=== PATIENT | male | born 1950 | race African-American/Black ===

== ENCOUNTER 2024-04-16 14:03 | Outpatient (REF) | payer MEDICARE, SELFPAY ==
--- NOTE | ~2024-04-16 | US_ITS ---
EXAMINATION: US TRIPLEX LOWER EXTREMITY, BILATERAL CLINICAL INFORMATION: Edema COMPARISON: None available. TECHNIQUE: Color-flow triplex imaging with spectral analysis and compression Doppler were performed on the bilateral lower extremities. FINDINGS: Respiratory variation, normal compression and augmented flow are noted throughout the bilateral lower extremities. The visualized common femoral vein, superficial femoral vein, profunda femoral vein, popliteal vein and midcalf peroneal and posterior tibial venous segments show no evidence of deep venous thrombosis bilaterally. There is no Carmichael's cyst. US/US venous duplex LE BI IMPRESSION: No acute deep venous thrombosis in the interrogated veins, both lower extremities. Electronically signed by: Hernán Gong MD 04/17/2024 07:11 AM ZEENAT
== END 2024-04-16 14:04 | disposition home or self-care (01) ==
LOC: HO.US 14:03
PROVIDERS: PCP Internal Medicine; Visit Provider Internal Medicine
DX: R60.0 Localized edema (principal)
CPT/HCPCS: 93970

== ENCOUNTER → 2024-04-16 14:12 | Outpatient (BNV) | payer MEDICARE, SELFPAY | PROVIDERS: PCP Internal Medicine; Visit Provider Radiology Diagnostic Radiology | DX: R60.9 Edema, unspecified (principal) | CPT/HCPCS: 93970 ==

== ENCOUNTER 2024-06-08 13:11 | Outpatient (AMB) | payer MEDICARE, SELFPAY ==
--- NOTE | 2024-06-08 13:17 | A.OFFVIS_ITS ---
Intake Visit Reasons: hydrocele/ history of stones Intake Note: New Patient presents for initial visit for left hydrocele Urology Medications: none Blood Thinner: none Legal Secretary Required: No Accompanied by: Self / Same As Patient Allergies No Known Allergies Allergy (Verified 06/08/24 14:03) Medication List - Last Reconciled 06/08/24 by MERYL Barraza amlodipine mg PO DAILY empagliflozin (Jardiance) mg PO DAILY insulin glargine (Lantus Solostar U-100 Insulin) units subcut lisinopril mg PO DAILY metformin mg PO DAILY metoprolol succinate ER mg PO pantoprazole mg PO rosuvastatin mg PO DAILY HPI Comments Details: Aaron is a 74-year-old male patient of Dr. Calle. He has a past medical history of diabetes, GERD, hypertension, and hyperlipidemia. He presents to the office today as a new patient for nephrolithiasis as well as large left hydrocele. In discussion with the patient today he reports previously following up with [facility] however is looking to reestablish new urology care. He discusses a previous history of nephrolithiasis requiring surgical intervention. He also discusses previously having a scrotal ultrasound and being diagnosed with a hydrocele. In assessment of the patient today the penis is uncircumcised and large left hydrocele was palpated othewise no open areas, drainage, or lesions noted. When asked he denies any bothersome urinary issues. He denies urinary urgency, urinary frequency, incontinence, nocturia, hematuria, dysuria, foul smelling urine, changes to urinary stream, flank pain, fever, and or chills. He is happy with his current voiding parameters. Previous scrotal ultrasound results were obtained and reviewed. 09/23 no evidence of testicular torsion. Small right and large left hydrocele. Previous CT 09/23 noted mild left pelviectasis. 6 mm stone seen in the proximal left ureter. The bladder is normal. However, patient reports having had surgical procedure on left obstructing stone and having had follow-up with ureteral stent removal in office with [facility]. We discussed at length potential causes of nephrolithiasis as well as hydrocele. We discussed further workup to include renal ultrasound for further assessment evaluation. We also discussed further intervention regarding large left hydrocele to include in office drainage verses surgical intervention. Risks and benefits of these interventions were discussed. He otherwise offers no other issues or concerns at this time. Review of Systems Const All systems reviewed & are unremarkable except as noted in HPI and below Physical Exam Const General: cooperative, healthy appearing, comfortable, no acute distress, well developed, alert and awake Orientation/consciousness: patient oriented x3 Limitations: ambulation with cane HEENT Head: Yes normal to inspection, Yes normocephalic and Yes atraumatic Ears: hearing grossly normal bilaterally Eyes General: appearance normal, both eyes and all related structures Neck Neck: Yes normal visual inspection and Yes trachea midline Chest Chest palpation & inspection: normal inspection of the chest Resp Effort & Inspection: normal respiratory effort and able to speak in complete sentences Cardio Rate: regular rate GI Inspection: Yes normal to inspection General: Yes no CVA tenderness Back/Spine/Pelvis Back: no CVA tenderness Skin General skin exam: no rashes or lesions noted Neuro General: patient oriented x3 Extrem General: Yes normal to inspection Psych Appearance: grossly normal and well kempt Mental Status: mental status grossly normal Speech and movement: Normal speech and movement present and Clear speech present Affect: normal affect Attitude: cooperative Thought process: Normal thought process present Thought content: Normal thought content present Insight: Fair insight present (Psych) Judgement: Fair judgement present (Psych) Results AMB Urinalysis, Automated UA Leukoctes 0 Corina/uL Last Edit by Chauffeur Prive on 06/08/24 13:35 UA Nitrite Last Edit by Chauffeur Prive on 06/08/24 13:35 UA Urobilinogen 0.2 mg/dL Last Edit by Chauffeur Prive on 06/08/24 13:35 UA Protein 0 mg/dL Last Edit by Chauffeur Prive on 06/08/24 13:35 UA pH 6.0 Last Edit by Chauffeur Prive on 06/08/24 13:35 UA Blood 0 [place]/uL Last Edit by Chauffeur Prive on 06/08/24 13:35 UA Specific [place] 1.015 Last Edit by Yuliana Mena on 06/08/24 13:35 UA Ketone Last Edit by Yuliana Mena on 06/08/24 13:35 UA Bilirubin 0 mg/dL Last Edit by Yuliana Mena on 06/08/24 13:35 UA Glucose 1000 mg/dL Last Edit by Yuliana Mena on 06/08/24 13:35 Results Reviewed Results Reviewed: Laboratory Last Values Urine pH (Auto) 6.0 06/08/24 13:34 Specific [place] (Auto) 1.015 06/08/24 13:34 Urine Protein (Auto) 0 mg/dL 06/08/24 13:34 Glucose (UA)(Auto) 1000 mg/dL 06/08/24 13:34 Urine Blood (Auto) 0 [place]/uL 06/08/24 13:34 Urine Bilirubin (Auto) 0 mg/dL 06/08/24 13:34 Urine Urobilinogen (Auto) 0.2 mg/dL 06/08/24 13:34 Leukocyte Esterase (Auto) 0 Corina/uL 06/08/24 13:34 Assessment & Plan Assessment & Plan (1) Hydrocele: Code(s): N43.3 - Hydrocele, unspecified Category: Medical (2) Nephrolithiasis: Code(s): N20.0 - Calculus of kidney Category: Medical Plan In office urinalysis results reviewed with the patient today; as noted above. Previous scrotal ultrasound and CT results reviewed; as noted above. We discussed further intervention of large left hydrocele; patient states he will think about this however would like to continue with surveillance monitoring at this time. Patient currently denies any bothersome urinary issues. He reports be happy with current voiding parameters. Will obtain renal ultrasound for further assessment evaluation. Will obtain PSA for further assessment evaluation. Discussed importance of adequate hydration relation to nephrolithiasis as well as overall health and well-being. Follow-up in 3 months with imaging and labs; or sooner with any issues, concerns, and or questions Orders: Orders Prostate Specific Antigen Today N40.0 - Benign prostatic hyperplasia without lower urinary tract symptoms AMB Urinalysis Automated Today Z13.9 - Encounter for screening, unspecified US renal BI Today N20.0 - Calculus of kidney Patient Instructions: The patient had an opportunity to ask questions regarding the treatment plan. All questions were answered. Physical exam, labs, and imaging were discussed and reviewed in detail. As well as risks, benefits, and discussion of treatment choices. No major barriers to understanding were identified. The patient expressed understanding and agreement with the above treatment plan. The patient was made aware they should contact our office by phone for worsening of their current condition, the appearance of new symptoms, or with any questions or concerns. Compliance is encouraged with any medications and follow up testing that is ordered. It is a privilege to be allowed the opportunity to participate in? your urological care.? Again, if you have any questions or concerns If you have any questions or concerns please do not hesitate to contact me. The office is [phone]. This note is constructed using voice recognition software. While every effort has been made to ensure accuracy prescription clerk lenses errors may have been included. Yours sincerely, MERYL Barraza Coding Level of Care Code New Pt Level 3 (10443) Diagnoses Hydrocele N43.3 Nephrolithiasis N20.0
== END 2024-06-08 14:09 | disposition home or self-care (01) ==
PROVIDERS: PCP Internal Medicine; Visit Provider Nurse Practitioner Family
DX: N43.3 Hydrocele, unspecified (principal); N20.0 Calculus of kidney; Z13.9 Encounter for screening, unspecified
CPT/HCPCS: 99203

== ENCOUNTER → 2024-06-08 13:11 | Outpatient (BNVA) | payer MEDICARE, SELFPAY | PROVIDERS: PCP Internal Medicine; Visit Provider Nurse Practitioner Family | DX: N43.3 Hydrocele, unspecified (principal); N20.0 Calculus of kidney | CPT/HCPCS: 81003; 99202 ==

== ENCOUNTER 2024-08-24 14:23 | Outpatient (REF) | payer MEDICARE, SELFPAY ==
--- NOTE | ~2024-08-24 | US_ITS ---
CLINICAL HISTORY: N20.0 - Calculus of kidney US Renal Comparison: None Findings: Right kidney normal size and echotexture, 11.1 cm length. Left kidney normal size and echotexture, 12 cm length. No visualized renal calculi. There is a cyst within the upper pole right kidney measuring 3.5 x 2.4 x 3 cm No hydronephrosis of either kidney. Normal color Doppler IMPRESSION: 3.5 x 2.4 x 3 cm right upper pole renal cyst No visualized renal calculi, CT would be more sensitive for small renal calculi. This document has been electronically signed by: Wesley Shirley MD on 08/25/2024 08:08:19
== END 2024-08-24 14:24 | disposition home or self-care (01) ==
LOC: HO.US 14:23
PROVIDERS: PCP Internal Medicine; Visit Provider Nurse Practitioner Family
DX: N20.0 Calculus of kidney (principal)
CPT/HCPCS: 76775

== ENCOUNTER → 2024-08-24 14:27 | Outpatient (BNV) | payer MEDICARE, SELFPAY | PROVIDERS: PCP Internal Medicine; Visit Provider Radiology Diagnostic Radiology | DX: N20.0 Calculus of kidney (principal) | CPT/HCPCS: 76775 ==

== ENCOUNTER 2024-09-07 13:45 | Outpatient (REF) | payer MEDICARE, SELFPAY ==
[2024-09-07 18:16] LABS: Prostate Specific Antigen 0.38 ng/mL (<0.05-4.0)
== END 2024-09-07 13:46 | disposition home or self-care (01) ==
LOC: HO.LAB 13:45
PROVIDERS: PCP Internal Medicine; Visit Provider Nurse Practitioner Family
DX: N20.0 Calculus of kidney (principal); N40.0 Benign prostatic hyperplasia without lower urinary tract symptoms; N43.3 Hydrocele, unspecified; R39.9 Unspecified symptoms and signs involving the genitourinary system; N28.1 Cyst of kidney, acquired; Z12.5 Encounter for screening for malignant neoplasm of prostate
CPT/HCPCS: 36415; 81003; 84153; 99212

== ENCOUNTER 2024-09-07 13:45 | Outpatient (AMB) | payer MEDICARE, SELFPAY ==
--- NOTE | 2024-09-07 13:46 | MHC.OFFVIS ---
Intake Visit Reasons: 3m/US/PSA Intake Note: Pt presents to the office today for a 3 month follow up/US/PSA. Allergies No Known Allergies Allergy (Verified 09/07/24 14:07) Medication List - Last Reconciled 09/07/24 by NATASHA Barraza- amlodipine mg PO DAILY empagliflozin (Jardiance) mg PO DAILY insulin glargine (Lantus Solostar U-100 Insulin) units subcut lisinopril mg PO DAILY metformin mg PO DAILY metoprolol succinate ER mg PO pantoprazole mg PO rosuvastatin mg PO DAILY HPI Comments Details: Aaron is a 74-year-old male patient of Dr. Calle. He has a past medical history of diabetes, GERD, hypertension, and hyperlipidemia. He presents to the office today for follow-up. Of note, patient was seen approximately 3 months ago as a new patient for nephrolithiasis as well as a large left hydrocele. Patient previously followed up with [facility] and was looking to reestablish urology care. During last office visit we discussed potential causes of nephrolithiasis as well as hydroceles and further intervention to include in office drainage verses surgical intervention with hydrocelectomy verses surveillance monitoring at which time patient continues to want to undergo surveillance monitoring of large left hydrocele. Recent renal imaging results reviewed with the patient today 08/25 bilateral kidneys are normal in size and echotexture. No renal calculi were visualized. There is a cyst within the upper pole of the kidney measuring 3.5 cm. No hydronephrosis noted bilaterally. A PSA was ordered however never obtained however patient plans to go to laboratory after appointment today. He does have a a longstanding history of nephrolithiasis requiring surgical intervention in the past. When asked he report episodes of urinary urgency and frequency as well as nocturia however feels symptoms are manageable independently. He otherwise denies hematuria, dysuria, foul smelling urine, changes to urinary stream, flank pain, fever, and or chills. He is happy with his current voiding parameters. Previous scrotal ultrasound results were obtained and reviewed. 09/23 no evidence of testicular torsion. Small right and large left hydrocele. We discussed at length potential causes of nephrolithiasis as well as hydrocele. We also discussed further intervention regarding large left hydrocele to include in office drainage verses surgical intervention. Risks and benefits of these interventions were discussed. In office urinalysis results reviewed with the patient today. He otherwise offers no other issues or concerns at this time. Plan No intervention for the renal cyst at present, given its stable nature. Focus on improving diabetes management to alleviate hyperglycosuria and its urinary complications. Implement dietary adjustments to help mitigate urinary urgency. Encourage ongoing monitoring of glucose levels and reconsider renal imaging in six months. Patient was informed and verbally consented to the use of an ambient scribe for clinic note documentation during this visit. Discussion Notes I discussed with the patient his renal ultrasound results, confirming an existent renal cyst without active kidney stones. We addressed affects of diabetes/glucose levels on urinary symptoms, emphasizing the need for stricter glycemic control. Dietary influences on urinary frequency were explained, advising moderation in consumption of certain foods and beverages. Review of Systems Const All systems reviewed & are unremarkable except as noted in HPI and below Physical Exam Const General: cooperative, healthy appearing, comfortable, no acute distress, well developed, alert and awake Orientation/consciousness: patient oriented x3 Limitations: ambulation with cane HEENT Head: Yes normal to inspection, Yes normocephalic and Yes atraumatic Ears: hearing grossly normal bilaterally Eyes General: appearance normal, both eyes and all related structures Neck Neck: Yes normal visual inspection and Yes trachea midline Chest Chest palpation & inspection: normal inspection of the chest Resp Effort & Inspection: normal respiratory effort and able to speak in complete sentences Cardio Rate: regular rate GI Inspection: Yes normal to inspection General: Yes no CVA tenderness Back/Spine/Pelvis Back: no CVA tenderness Skin General skin exam: no rashes or lesions noted Neuro General: patient oriented x3 Extrem General: Yes normal to inspection Psych Appearance: grossly normal and well kempt Mental Status: mental status grossly normal Speech and movement: Normal speech and movement present and Clear speech present Affect: normal affect Attitude: cooperative Thought process: Normal thought process present Thought content: Normal thought content present Insight: Fair insight present (Psych) Judgement: Fair judgement present (Psych) Results AMB Urinalysis, Automated UA Leukoctes 0 Corina/uL Last Edit by Unique Walker CMA on 09/07/24 13:59 UA Nitrite Negative Last Edit by Unique Walker CMA on 09/07/24 13:59 UA Urobilinogen 0.2 mg/dL Last Edit by Unique Walker CMA on 09/07/24 13:59 UA Protein 0 mg/dL Last Edit by Unique Walker CMA on 09/07/24 13:59 UA pH 6.0 Last Edit by Unique Walker CMA on 09/07/24 13:59 UA Blood 0 [place]/uL Last Edit by Unique Walker CMA on 09/07/24 13:59 UA Specific [place] 1.010 Last Edit by Unique Walker CMA on 09/07/24 13:59 UA Ketone Negative Last Edit by Unique Walker CMA on 09/07/24 13:59 UA Bilirubin 0 mg/dL Last Edit by Unique Walker CMA on 09/07/24 13:59 UA Glucose 1000 mg/dL Last Edit by Unique Walker CMA on 09/07/24 13:59 Results Reviewed Results Reviewed: Laboratory Last Values Urine pH (Auto) 6.0 09/07/24 13:59 Specific [place] (Auto) 1.010 09/07/24 13:59 Urine Protein (Auto) 0 mg/dL 09/07/24 13:59 Glucose (UA)(Auto) 1000 mg/dL 09/07/24 13:59 Urine Ketones (Auto) Negative 09/07/24 13:59 Urine Blood (Auto) 0 [place]/uL 09/07/24 13:59 Urine Nitrite (Auto) Negative 09/07/24 13:59 Urine Bilirubin (Auto) 0 mg/dL 09/07/24 13:59 Urine Urobilinogen (Auto) 0.2 mg/dL 09/07/24 13:59 Leukocyte Esterase (Auto) 0 Corina/uL 09/07/24 13:59 Date of Service: 08/24/24 Procedure(s): US renal BI Findings: Right kidney normal size and echotexture, 11.1 cm length. Left kidney normal size and echotexture, 12 cm length. No visualized renal calculi. There is a cyst within the upper pole right kidney measuring 3.5 x 2.4 x 3 cm No hydronephrosis of either kidney. Normal color Doppler IMPRESSION: 3.5 x 2.4 x 3 cm right upper pole renal cyst No visualized renal calculi, CT would be more sensitive for small renal calculi. Assessment & Plan Assessment & Plan (1) Nephrolithiasis: Code(s): N20.0 - Calculus of kidney Category: Medical (2) Hydrocele: Code(s): N43.3 - Hydrocele, unspecified Category: Medical (3) Lower urinary tract symptoms: Code(s): R39.9 - Unspecified symptoms and signs involving the genitourinary system Category: Medical (4) Renal cyst: Code(s): N28.1 - Cyst of kidney, acquired Category: Medical Plan In office urinalysis results reviewed with the patient today; as noted above. We discussed at length the importance of management and diabetes for improvement lower urinary tract symptoms as well as overall health and well-being. Recent renal imaging results reviewed with the patient today; as noted above. We discussed at length potential causes of nephrolithiasis as well as hydroceles and further treatment options and risks and benefits of these treatment options. Will continue with surveillance monitoring. Discussed importance of obtaining PSA for further assessment evaluation. We discussed bladder triggers/irritants. Follow-up in 3 months with PSA and PVR; or sooner with any issues, concerns, and or questions. Orders: Orders AMB Urinalysis Automated Today N20.0 - Calculus of kidney Patient Instructions: The patient had an opportunity to ask questions regarding the treatment plan. All questions were answered. Physical exam, labs, and imaging were discussed and reviewed in detail. As well as risks, benefits, and discussion of treatment choices. No major barriers to understanding were identified. The patient expressed understanding and agreement with the above treatment plan. The patient was made aware they should contact our office by phone for worsening of their current condition, the appearance of new symptoms, or with any questions or concerns. Compliance is encouraged with any medications and follow up testing that is ordered. It is a privilege to be allowed the opportunity to participate in? your urological care.? Again, if you have any questions or concerns If you have any questions or concerns please do not hesitate to contact me. The office is [phone]. This note is constructed using voice recognition software. While every effort has been made to ensure accuracy chief meter reader errors may have been included. Yours sincerely, MERYL Barraza Coding Level of Care Code Est Pt Level 3 (79347) Complex EM visit Add On G2211 Diagnoses Nephrolithiasis N20.0 Hydrocele N43.3 Lower urinary tract symptoms R39.9 Renal cyst N28.1
== END 2024-09-07 14:28 | disposition home or self-care (01) ==
LOC: HO.HUSH 13:46
PROVIDERS: PCP Internal Medicine; Visit Provider Nurse Practitioner Family
DX: N20.0 Calculus of kidney (principal); N43.3 Hydrocele, unspecified; R39.9 Unspecified symptoms and signs involving the genitourinary system; N28.1 Cyst of kidney, acquired
CPT/HCPCS: 99213; G2211

== ENCOUNTER 2024-12-07 14:40 | Outpatient (AMB) | payer MEDICARE, SELFPAY ==
--- NOTE | 2024-12-07 14:48 | A.OFFVIS_ITS ---
Intake Visit Reasons: 3m/PVR Intake Note: Patient presents today for follow up on: hydrocele, LUTS, renal cyst, kidney stone, and psa lab results PSA: 0.38 Urology Medications: none Blood Thinner: none PVR: 14ml's Director Asset Required: No Accompanied by: Self / Same As Patient Allergies No Known Allergies Allergy (Verified 12/07/24 15:34) Medication List - Last Reconciled 12/07/24 by MERYL Barraza amlodipine mg PO DAILY empagliflozin (Jardiance) mg PO DAILY insulin glargine (Lantus Solostar U-100 Insulin) units subcut lisinopril mg PO DAILY metformin mg PO DAILY metoprolol succinate ER mg PO pantoprazole mg PO rosuvastatin mg PO DAILY thiamine HCl (vitamin B1) 100 mg PO DAILY HPI Comments Details: Aaron is a 74-year-old male patient of Dr. Calle. He has a past medical history of diabetes, GERD, hypertension, and hyperlipidemia. He presents to the office today for follow-up of his nephrolithiasis, renal cysts, and hydrocele. In discussion with the patient today reports to be doing and feeling well. He denies having had any bothersome urinary issues or concerns since his last office visit here. Recent PSA results reviewed with the patient today PSA: 09/25 0.4 Previous workup has included a retroperitoneal ultrasound 08/25 bilateral kidneys are normal in size and echotexture. No renal calculi were visualized. There is a cyst within the upper pole of the kidney measuring 3.5 cm. No hydronephrosis noted bilaterally. He does have a a longstanding history of nephrolithiasis requiring surgical intervention in the past with [facility]. When asked he report episodes of urinary urgency and frequency as well as nocturia however feels symptoms are manageable independently. He otherwise denies hematuria, dysuria, foul smelling urine, changes to urinary stream, flank pain, fever, and or chills. He is happy with his current voiding parameters. Previous scrotal ultrasound results were obtained and reviewed. 09/23 no evidence of testicular torsion. Small right and large left hydrocele. We discussed at length potential causes of nephrolithiasis as well as hydrocele. We also discussed further intervention regarding large left hydrocele to include in office drainage verses surgical intervention versus surveillance monitoring. Risks and benefits of these interventions were discussed. In office urinalysis results reviewed with the patient today. He otherwise offers no other issues or concerns at this time. Review of Systems Const All systems reviewed & are unremarkable except as noted in HPI and below Physical Exam Const General: cooperative, healthy appearing, comfortable, no acute distress, well developed, alert and awake Nutritional Appearance: underweight Orientation/consciousness: patient oriented x3 Limitations: ambulation with cane HEENT Head: Yes normal to inspection, Yes normocephalic and Yes atraumatic Ears: hearing grossly normal bilaterally Eyes General: appearance normal, both eyes and all related structures Neck Neck: Yes normal visual inspection and Yes trachea midline Chest Chest palpation & inspection: normal inspection of the chest Resp Effort & Inspection: normal respiratory effort and able to speak in complete sen tences Cardio Rate: regular rate GI Inspection: Yes normal to inspection General: Yes no CVA tenderness Back/Spine/Pelvis Back: no CVA tenderness Skin General skin exam: no rashes or lesions noted Neuro General: patient oriented x3 Extrem General: Yes normal to inspection Psych Appearance: grossly normal and well kempt Mental Status: mental status grossly normal Speech and movement: Normal speech and movement present and Clear speech present Affect: normal affect Attitude: cooperative Thought process: Normal thought process present Thought content: Normal thought content present Insight: Fair insight present (Psych) Judgement: Fair judgement present (Psych) Office Procedures Post Void Residual Post Residual Void Post Void Residual (PVR): 14 [id number] Void Residual by ultrasound Results AMB Urinalysis, Automated UA Leukoctes 15 Corina/uL Last Edit by GA Burkett on 12/07/24 15:35 UA Nitrite Last Edit by GA Burkett on 12/07/24 15:35 UA Urobilinogen 0.2 mg/dL Last Edit by GA Burkett on 12/07/24 15:3 5 UA Protein 0 mg/dL Last Edit by GA Burkett on 12/07/24 15:35 UA pH 6.5 Last Edit by [facility], [facility] on 12/07/24 15:35 UA Blood 0 [place]/uL Last Edit by Yuliana Mena, [facility] on 12/07/24 15:35 UA Specific [place] 1.010 Last Edit by Yuliana Mena, [facility] on 12/07/24 15: 35 UA Ketone Last Edit by Yuliana Mena, [facility] on 12/07/24 15:35 UA Bilirubin 0 mg/dL Last Edit by Yuliana March, [facility] on 12/07/24 15:35 UA Glucose 1000 mg/dL Last Edit by Yuliana Mena, [facility] on 12/07/24 15:35 Results Reviewed Results Reviewed: Laboratory Last Values Urine pH (Auto) 6.5 12/07/24 15:34 Specific [place] (Auto) 1.010 12/07/24 15:34 Urine Protein (Auto) 0 mg/dL 12/07/24 15:34 Glucose (UA)(Auto) 1000 mg/dL 12/07/24 15:34 Urine Blood (Auto) 0 [place]/uL 12/07/24 15:34 Urine Bilirubin (Auto) 0 mg/dL 12/07/24 15:34 Urine Urobilinogen (Auto) 0.2 mg/dL 12/07/24 15:34 Leukocyte Esterase (Auto) 15 [place]ina/uL 12/07/24 15:34 Assessment & Plan Assessment & Plan (1) Nephrolithiasis: Code(s): N20.0 - Calculus of kidney Category: Medical (2) Renal cyst: Code(s): N28.1 - Cyst of kidney, acquired Category: Medical (3) Lower urinary tract symptoms: Code(s): R39.9 - Unspecified symptoms and signs involving the genitourinary system Category: Medical (4) Hydrocele: Code(s): N43.3 - Hydrocele, unspecified Category: Medical Plan In office urinalysis results reviewed with the patient today; as noted above. Recent PSA results reviewed with the patient today; as noted above. Will continue with surveillance monitoring of nephrolithiasis, large left hydrocele, and PSA monitoring. He currently denies any bothersome urinary issues or concerns. Reports be happy with current voiding parameters. Will obtain renal ultrasound in 6 months. Follow-up in 6 months with imaging to be completed prior and PVR at next office visit; or sooner with any issues, concerns, and or questions. Orders: Orders US renal BI 6 Months N20.0 - Calculus of kidney AMB Urinalysis Automated Today Z13.9 - Encounter for screening, unspecified AMB Post Void Residual by ultrasound Today R39.9 - Unspecified symptoms and signs involving the genitourinary system Patient Instructions: The patient had an opportunity to ask questions regarding the treatment plan. All questions were answered. Physical exam, labs, and imaging were discussed and reviewed in detail. As well as risks, benefits, and discussion of treatment choices. No major barriers to understanding were identified. The patient expr essed understanding and agreement with the above treatment plan. The patient was made aware they should contact our office by phone for worsening of their current condition, the appearance of new symptoms, or with any questions or concerns. Compliance is encouraged with any medications and follow up testing that is ordered. It is a privilege to be allowed the opportunity to participate in? your urological care.? Again, if you have any questions or concerns If you have any questions or concerns please do not hesitate to contact me. The office is [phone]. This note is constructed using voice recognition software. While every effort has been made to ensure accuracy school teacher errors may have been included. Yours sincerely, MERYL Barraza Coding Level of Care Code Est Pt Level 3 (90805) Complex EM visit Add On G2211 Diagnoses Nephrolithiasis N20.0 Renal cyst N28.1 Lower urinary tract symptoms R39.9 Hydrocele N43.3 CPT Codes Post Residual Void - PVR CPT Code: 96184-Thls Void Residual by ultrasound ([id number])
== END 2024-12-07 15:40 | disposition home or self-care (01) ==
LOC: HO.HUSH 14:40
PROVIDERS: PCP Internal Medicine; Visit Provider Nurse Practitioner Family
DX: N20.0 Calculus of kidney (principal); N28.1 Cyst of kidney, acquired; R39.9 Unspecified symptoms and signs involving the genitourinary system; N43.3 Hydrocele, unspecified
CPT/HCPCS: 99213; G2211

== ENCOUNTER → 2024-12-07 14:40 | Outpatient (BNVA) | payer MEDICARE, SELFPAY | PROVIDERS: PCP Internal Medicine; Visit Provider Nurse Practitioner Family | DX: N20.0 Calculus of kidney (principal); N28.1 Cyst of kidney, acquired; N43.3 Hydrocele, unspecified; R39.9 Unspecified symptoms and signs involving the genitourinary system; Z79.899 Other long term (current) drug therapy | CPT/HCPCS: 51798; 81003; 99212 ==

== ENCOUNTER 2025-05-14 14:04 | Outpatient (REF) | payer MEDICARE, SELFPAY ==
--- NOTE | ~2025-05-14 | US_ITS ---
EXAMINATION: US KIDNEY BILATERAL HISTORY: N20.0 - Calculus of kidney TECHNIQUE: Real-time grayscale ultrasound imaging of the kidneys was performed and images were reviewed. COMPARISON: Comparison is made with the prior examination dated 08/24/2024. FINDINGS: Right kidney: The right kidney measures 12.5 x 5.8 x 6.3 cm. Renal parenchymal echotexture and thickness are normal. There is an upper pole cyst measuring 4.6 x 2.8 x 4.1 cm. There is no hydronephrosis or renal calculi. Left Kidney: The left kidney measures 12.0 x 6.2 x 4.8 cm. Renal parenchymal echotexture and thickness are normal. There are no masses. There is no hydronephrosis or renal calculi. US/US renal BI IMPRESSION: 4.6 x 2.8 x 4.1 cm right renal cyst. Otherwise unremarkable renal ultrasound. Electronically signed by: Wesley Winslow MD 05/14/2025 02:34 PM EST
== END 2025-05-14 14:05 | disposition home or self-care (01) ==
LOC: HO.US 14:04
PROVIDERS: PCP Internal Medicine; Visit Provider Nurse Practitioner Family
DX: N20.0 Calculus of kidney (principal)
CPT/HCPCS: 76775

== ENCOUNTER → 2025-05-14 14:08 | Outpatient (BNV) | payer MEDICARE, SELFPAY | PROVIDERS: PCP Internal Medicine; Visit Provider Radiology Diagnostic Radiology | DX: N28.1 Cyst of kidney, acquired (principal) | CPT/HCPCS: 76775 ==